=== PATIENT | male | born 1925 | race Caucasian/White ===

== ENCOUNTER 2016-04-08 00:44 | Emergency (ER) | payer OTHER ==
[2016-04-08] MEDS ORDERED: OXYMETAZOLINE 30 ML NASAL SPRAY ONE (01:40)
--- NOTE | 2016-04-08 01:45 | EDPHY ---
H & P Stated Complaint: Left nostril bleeding x 45 min Time Seen by Provider: 04/08/16 01:12 HPI/ROS: HPI The patient presents with epistaxis from left nose which has been present for the last 1 hour, now resolved. The patient recently returned from [place]. He noticed the bleeding tonight while at rest. He tried packing his nose, however passed 2 large clots and came into the emergency room. Now with pressure the bleeding has stopped. He has been evaluated by ENT in the past and had cauterization performed. He is on clopidogrel.. REVIEW OF SYSTEMS Constitutional: No fever, no chills. Eyes: No discharge. ENT: No sore throat. Skin: No rashes. Neurological: No headache. PHYSICAL General Appearance: Alert, no distress Eyes: Pupils equal and round no pallor or injection ENT, Mouth: Nares with no active bleeding, Mucous membranes moist Respiratory: Breathing comfortably Neurological: A&O, moves all extremities Skin: Warm and dry, no rashes Musculoskeletal: Neck is supple non tender Extremities: symmetrical, full range of motion Psychiatric: Patient is oriented X 3, there is no agitation Source: Patient - Personal History Current Tetanus/Diphtheria Vaccine: Yes Current Tetanus Diphtheria and Acellular Pertussis (TDAP): Yes Tetanus Vaccine Date: 2012 - Medical/Surgical History Hx Asthma: No Hx Chronic Respiratory Disease: No Hx Diabetes: No Hx Cardiac Disease: Yes Hx Renal Disease: No Hx Cirrhosis: No Hx Alcoholism: No Hx HIV/AIDS: No Hx Splenectomy or Spleen Trauma: No Other PMH: BYPASS X 5, HIGH CHOLESTEROL, HTN, USE CPAP AT NIGHT, Total right knee, R shoulder muscle surgery - Social History Smoking Status: Former smoker Constitutional: Initial Vital Signs Heart Rate 86 04/08/16 00:53 Respiratory Rate 18 04/08/16 00:53 Blood Pressure 155/110 H 04/08/16 00:53 O2 Sat (%) 93 04/08/16 00:53 O2 Delivery Mode Room Air Allergies/Adverse Reactions: No Known Allergies Allergy (Verified 04/08/16 00:48) Home Medications: Medication Instructions Recorded FOSINOPRIL SODIUM 10/16/13 Finasteride [Proscar 5 MG (*)] 5 mg PO DAILY 10/16/13 Hydrochlorothiazide [HCTZ (*)] 12.5 mg PO DAILY 10/16/13 Metoprolol Succinate Xr [Toprol Xl 100 mg PO DAILY@162910/16/13 100 mg (*)] Rosuvastatin Calcium [Crestor] 10 mg PO DAILY@162910/16/13 Travoprost Z 0.004% [Travatan Z 1 drops EACHEYE HS 10/16/13 0.004% (*)] Vit C/[place] AC/Lut/Copper/Znox 1 each PO DAILY@162910/16/13 [Preservision Lutein Softgel] Clopidogrel 04/08/16 Medical Decision Making Differential Diagnosis: This is an 89-year-old man on the clopidogrel who presents from home with epistaxis, now resolved. On exam, he is hypertensive, no obvious source of bleeding is identified. Differential diagnosis includes bleeding from Kiesselbach's plexus, posterior epistaxis, coagulopathy related to clopidogrel. In the emergency room, the patient was given Afrin and nasal clamps for home use. He was given information for ENT for follow-up tomorrow as needed. He had no recurrence of his bleeding. - Data Points Medications Given: Discontinued Medications Oxymetazoline HCl (Afrin Nasal [place]) 2 sprays EACHNARE EDNOW ONE Stop: 04/08/16 01:49 Last Admin: 04/08/16 01:51 Dose: 2 spray Departure - Departure Disposition: Home, Routine, Self-Care Clinical Impression: Acute anterior epistaxis Condition: Good Instructions: Nosebleed (ED) Additional Instructions: Please call the ENT as listed below for follow-up later today. He should return to the emergency room if your worse in any way. Referrals: Nick Kelly MD [Primary Care Provider] - As per Instructions Charis Gay PA [Physician Sales Representative [employer]] - As per Instructions
[2016-04-08] MEDS ORDERED: OXYMETAZOLINE 30 ML NASAL SPRAY EACHNARE ONE (01:48)
[2016-04-08 01:51] VITALS: BP 144/74; PULSE 64; RESP 16; TEMP 97.9; O2SAT 96
== END 2016-04-08 01:51 | disposition home or self-care (01) ==
DX: R04.0 Epistaxis (principal); I10 Essential (primary) hypertension; Z87.891 Personal history of nicotine dependence

== ENCOUNTER 2017-05-09 00:02 | Emergency (ER) | payer OTHER ==
[2017-05-09 00:06] VITALS: RESP 18; TEMP 97.7
[2017-05-09] MEDS ORDERED: SILVER NITRATE APPLICATOR 1 APPL TP ONE ×2 (00:17→00:18)
[2017-05-09] MEDS ORDERED: LIDOCAINE HCL 4% TOPICAL SOLN 50ML ONE (00:17)
[2017-05-09] MEDS ORDERED: OXYMETAZOLINE 30 ML NASAL SPRAY ONE (00:18)
[2017-05-09] MEDS ORDERED: LIDOCAINE HCL 4% TOPICAL SOLN 50ML MM ONE (00:19)
[2017-05-09] MEDS ORDERED: OXYMETAZOLINE 30 ML NASAL SPRAY EACHNARE ONE (00:20)
--- NOTE | 2017-05-09 00:53 | EDPHY ---
H & P Stated Complaint: nosebleed x45 min Time Seen by Provider: 05/09/17 00:14 HPI/ROS: Chief Complaint: Nosebleed HPI: 89-year-old male woke 45 min ago with bleeding from his left nostril. He has a history of nosebleeds in the past. Had a mild when a couple days ago that went away with direct pressure for few minutes. He is on Plavix but no other blood thinning medications. Has required cautery 2 years ago. No recent illness. No fevers or chills. They do not have a humidifier in the home because they have had mold issues in the past. No headache. No foreign bodies. ROS: 10 point Review of Systems is negative except as noted in the HPI. Family History: non-contributory Physical Exam: Gen: Awake, Alert, No Distress HEENT: Nose: Moderate bleeding from his anterior left nostril Eyes: PERRLA, EOMI Mouth: Moist mucosa Neck: Supple, no JVD Ext: no edema, non-tender Skin: no rash Neuro: CN II-XII intact, Sensation grossly intact, Strength 5/5 in bilateral upper and lower extremities - Personal History Current Tetanus/Diphtheria Vaccine: Yes Tetanus Vaccine Date: 2012 - Medical/Surgical History Hx Asthma: No Hx Chronic Respiratory Disease: No Hx Diabetes: No Hx Cardiac Disease: Yes Hx Renal Disease: No Hx Cirrhosis: No Hx Alcoholism: No Hx HIV/AIDS: No Hx Splenectomy or Spleen Trauma: No Other PMH: BYPASS X 5, HIGH CHOLESTEROL, HTN, USE CPAP AT NIGHT, Total right knee, R shoulder muscle surgery - Social History Smoking Status: Former smoker Constitutional: Initial Vital Signs Temperature (C) 36.5 C 05/09/17 00:03 Heart Rate 118 H 05/09/17 00:03 Respiratory Rate 18 05/09/17 00:03 Blood Pressure 159/105 H 05/09/17 00:03 O2 Sat (%) 96 05/09/17 00:03 O2 Delivery Mode Room Air Allergies/Adverse Reactions: No Known Allergies Allergy (Verified 04/08/16 00:48) Home Medications: Medication Instructions Recorded FOSINOPRIL SODIUM 10/16/13 Finasteride [Proscar 5 MG (*)] 5 mg PO DAILY 10/16/13 Hydrochlorothiazide [HCTZ (*)] 12.5 mg PO DAILY 10/16/13 Metoprolol Succinate Xr [Toprol Xl 100 mg PO DAILY@162910/16/13 100 mg (*)] Rosuvastatin Calcium [Crestor] 10 mg PO DAILY@162910/16/13 Travoprost Z 0.004% [Travatan Z 1 drops EACHEYE HS 10/16/13 0.004% (*)] Vit C/Vit E AC/Lut/Copper/Zinc 1 each PO DAILY@162910/16/13 [Preservision Lutein Softgel] Clopidogrel 04/08/16 Medical Decision Making Procedures: Procedure: Epistaxis control. After verbal consent was obtained, the patient was anesthetized with 4% lidocaine and Addison-Synephrine. The anterior epistaxis was identified. The patient was treated with silver nitrate cautery. Following the procedure the patient was re-examined and the bleeding was well controlled. The patient tolerated the procedure well. The procedure was performed by myself. - Data Points Medications Given: Discontinued Medications Lidocaine HCl (Lidocaine Hcl 4% Topical Solution) 2 ml MM EDNOW ONE Stop: 05/09/17 00:20 Last Admin: 05/09/17 00:21 Dose: 2 ml Oxymetazoline HCl (Afrin Nasal [place]) 2 sprays EACHNARE EDNOW ONE Stop: 05/09/17 00:21 Last Admin: 05/09/17 00:22 Dose: 2 spray Silver Nitrate/Potassium Nitrate (Silver Nitrate Applicator) 3 each TP EDNOW ONE Stop: 05/09/17 00:19 Last Admin: 05/09/17 00:22 Dose: 3 each Departure - Departure Disposition: Home, Routine, Self-Care Clinical Impression: Acute anterior epistaxis Condition: Good Instructions: Nosebleed (ED) Additional Instructions: Follow up with Ear Nose and Throat doctor in 2-3 days for further evaluation. Return to the emergency department for return of bleeding, lightheadedness, fainting, nausea vomiting, or any other concerns. Referrals: Nikc Kelly MD [Primary Care Provider] - As per Instructions Christofer Bertrand MD [Medical Doctor] - As per Instructions
[2017-05-09 02:00] VITALS: BP 128/87; PULSE 89; O2SAT 95
== END 2017-05-09 02:00 | disposition home or self-care (01) ==
PROC: 3E09XTZ Introduction of Destructive Agent into Nose, External Approach (ICD-10-PCS; principal; 2017-05-09)
DX: R04.0 Epistaxis (principal); I10 Essential (primary) hypertension; Z87.891 Personal history of nicotine dependence

== ENCOUNTER 2017-08-16 08:54 | Day surgery (SDC) | payer OTHER ==
[2017-08-16] MEDS ORDERED: BENZOCAINE UNIT DOSE SPRAY HURRICAINE MM ONE (09:05)
[2017-08-16] MEDS ORDERED: fentaNYL 100 MCG/2 ML INJ IVP ONE (09:05)
[2017-08-16] MEDS ORDERED: NS 500 ML IV ONE (09:05)
[2017-08-16] MEDS ORDERED: ATROPINE SULFATE 1 MG/10 ML SYR IVP ONE (09:05)
[2017-08-16] MEDS ORDERED: MIDAZOLAM 2 MG/2 ML VIAL IVP ONE (09:05)
--- NOTE | 2017-08-16 09:16 | CPEKG ---
Heart Rate: 100 RR Interval: 600 QRSD Interval: 122 QT Interval: 384 QTC Interval: 496 QRS [place]ricks: 72 T Wave Hendricks: -32 EKG Severity - ABNORMAL ECG - EKG Impression: ATRIAL FIBRILLATION, V-RATE 94-104 EKG Impression: RIGHT BUNDLE BRANCH BLOCK Electronically Signed By: Kumar East 16-Aug-2017 11:45:07
[2017-08-16 09:38] LABS: INR 1.55 (0.83-1.16); PROTIME(PATIENT) 18.7 SEC (12.0-15.0)
--- NOTE | 2017-08-16 10:18 | PDANEPAE ---
ANE History of Present Illness a flutter ANE Past Medical History - Cardiovascular History Hx Hypertension: Yes Hx Arrhythmias: Yes Hx Chest Pain: No Hx Coronary Artery / Peripheral Vascular Disease: Yes Hx CHF / Valvular Disease: No Hx Palpitations: No - Pulmonary History Hx COPD: No Hx Asthma/Reactive Airway Disease: No Hx Recent Upper Respiratory Infection: No Hx Oxygen in Use at Home: No Hx Sleep Apnea: Yes - Endocrine History Hx Diabetes: No Obesity: yes - Chronic Pain History Chronic Pain: No ANE Review of Systems Review of systems is: negative Review of Systems: - Exercise capacity Exercise capacity: >=4 METS ANE Patient History - Allergies Allergies/Adverse Reactions: No Known Allergies Allergy (Verified 04/08/16 00:48) - Home Medications Home medications: home medication list seen and reviewed Home Medications: FOSINOPRIL SODIUM 10/16/13 [Last Taken Unknown] Finasteride [Proscar 5 MG (*)] 5 mg PO DAILY 10/16/13 [Last Taken 10/15/13] Hydrochlorothiazide [HCTZ (*)] 12.5 mg PO DAILY 10/16/13 [Last Taken 08/15/17 13 :00] Metoprolol Succinate Xr [Toprol Xl 100 mg (*)] 50 mg PO DAILY 10/16/13 [Last Taken 08/16/17 07:00] Rosuvastatin Calcium [Crestor] 10 mg PO DAILY@1630 10/16/13 [Last Taken 10/15/13 ] Travoprost Z 0.004% [Travatan Z 0.004% (*)] 1 drops EACHEYE HS 10/16/13 [Last Taken 10/15/13] Vit C/Vit E AC/Lut/Copper/Zinc [Preservision Lutein Softgel] 1 each PO DAILY@ 1630 10/16/13 [Last Taken 10/15/13] Clopidogrel 75 mg PO DAILY 04/08/16 [Last Taken 08/16/17 07:00] Warfarin Sodium 1 mg PO DAILY 08/16/17 [Last Taken 08/15/17 13:00] - Smoking Hx Smoking Status: Former smoker ANE Labs/Vital Signs - Labs Result Diagrams: 08/16/17 09:20 - Vital Signs Height: 168 cm Weight: 81.6 kg ANE Physical Exam - Airway Neck exam: FROM Mallampati Score: Class 2 Mouth exam: poor dentition - Pulmonary Pulmonary: no respiratory distress - Cardiovascular Cardiovascular: regular rate and rhythym - ASA Status ASA Status: III ANE Anesthesia Plan Anesthesia Plan: GA with mask Urgent/Emergent Case: Anes eval completed preop but documented later for safe timely pt care
[2017-08-16] MEDS ORDERED: PROPOFOL 200 MG/20 ML VIAL ONE (10:20)
--- NOTE | 2017-08-16 10:20 | PDHPUP ---
History & Physical Update H&P update statement: This history and physical update is based on an assessment of the patient which was completed after admission or registration (within 24 hours), but prior to the surgery/procedure. H&P update: H&P reviewed & patient examined, no change in patient's condition since H&P completed
[2017-08-16] MEDS ORDERED: WARFARIN SODIUM 1 MG TAB PO ONE (10:45)
[2017-08-16] MEDS ORDERED: NALOXONE HCL 0.4 MG/ML INJ IVP PRN (10:51)
[2017-08-16] MEDS ORDERED: ALBUTEROL 3 ML DEYVIAL IH PRN (10:51)
[2017-08-16] MEDS ORDERED: ACETAMINOPHEN 500 MG TAB PO PRN (10:51)
[2017-08-16] MEDS ORDERED: ONDANSETRON 4 MG/2 ML VIAL IVP PRN (10:51)
--- NOTE | 2017-08-16 10:51 | POSTANESTH ---
Post Anesthetic Evaluation Cardiovascular Status: Normal, Stable Respiratory Status: Normal, Stable Level of Consciousness/Mental Status: Can Participate in Eval, Moderately Sleepy Pain Control: Adequate, Prn Tx Ordered Nausea/Vomiting Control: Adequate, Prn Tx Ordered Complications Possibly Related to Anesthesia: None Noted
--- NOTE | 2017-08-16 10:54 | PDTEE1 ---
DENISE Cardioversion Procedure Procedure: electrical cardioversion, transesophageal echo Indications: other (atrial flutter) Consent: signed and in chart Anticoagulation: warfarin Procedural Details: Pads were placed in anterior-posterior position. DENISE probe was advanced and standard images obtained. There is no evidence of left atrial or left atrial appendage thrombus. Synchronized cardioversion attempt #1: 200J Results: normal sinus rhythm Conclusions: successful DENISE cardioversion Patient Problems: Problems Problem Status Onset TIA (transient ischemic attack) Acute
--- NOTE | 2017-08-16 16:56 | ECHO ---
[email or web address] [id number] Main: [phone] Fax: Transesophageal Echocardiography Name: JAQUELINE ARRINGTON MR#: [id number] Study Date: 08/16/2017 Study Time: 10:16 AM Date of : 1925 Age: 89 year(s) Height: ( ) Weight: ( ) BSA: Gender: Male Examination: DENISE Indication: Pre Cardioversion Image Quality: Contrast: Requested by: Jose A Morrissey Heart Rate: Rhythm: Atrial fibrillation BP: / Procedure Staff Mud Cleaner Operator: Fred Noel RDCS Reading Physician: Jose A Morrissey MD Requesting Provider: DENISE Exam Details Conclusions: Normal global systolic LV function. An agitated saline study was performed and was negative for intracardiac shunting. Spontaneous contrast in the left atrium. No thrombus in left appendage. Trivial mitral valve regurgitation. Mild aortic cusp calcification is noted. Mild aortic valve regurgitation is present. Proceeded with successful elective DC cardioversion.. Measurements: Chambers Valvular Assessment AV/MV Valvular Assessment TV/PV Normal Normal Normal Name Value Range Name Value Range Name Value Range Additional Measurements: Findings: Left Ventricle: Normal global systolic LV function. Left Atrium: An agitated saline study was performed and was negative for intracardiac shunting. Spontaneous contrast in the left atrium. Left Atrial Appendage: Patient: JAQUELINE ARRINGTON Study Date: 08/16/2017 Page 1 of 2 10:16 AM Good color flow doppler in the left atrial appendage. No thrombus in left appendage. Right Atrium: The right atrium is normal in size. Mitral Valve: Trivial mitral valve regurgitation. Aortic Valve: Mild aortic cusp calcification is noted. Mild aortic valve regurgitation is present. Pulmonic Valve: The pulmonic valve is normal in appearance and function. Aorta: The aorta is normal. Pericardium: No pericardial effusion. Exam Comments: Proceeded with successful elective DC cardioversion.. l1n (No Signature Object) Patient: JAQUELINE ARRINGTON Study Date: 08/16/2017 Page 2 of 2 10:16 AM [id number]
--- NOTE | 2017-08-17 07:36 | CPEKG ---
Heart Rate: 43 RR Interval: 1395 QRSD Interval: 128 QT Interval: 492 QTC Interval: 417 QRS [place]: 44 T Wave [place]: -90 EKG Severity - ABNORMAL ECG - EKG Impression: ATRIAL FIBRILLATION EKG Impression: RIGHT BUNDLE BRANCH BLOCK Electronically Signed By: Kumar East 17-Aug-2017 08:41:12
== END 2017-08-16 12:56 | disposition home or self-care (01) ==
LOC: FIMAGING 08:54 → FCATH 12:56
PROVIDERS: ATTEND Internal Medicine Interventional Cardiology
PROC: B245ZZ4 Ultrasonography of Left Heart, Transesophageal (ICD-10-PCS; principal; 2017-08-16)
PROC: 5A2204Z Restoration of Cardiac Rhythm, Single (ICD-10-PCS; principal; 2017-08-16)
DX: I48.92 Unspecified atrial flutter (principal); I25.10 Atherosclerotic heart disease of native coronary artery without angina pectoris; E78.00 Pure hypercholesterolemia, unspecified; I10 Essential (primary) hypertension; N40.0 Benign prostatic hyperplasia without lower urinary tract symptoms; E66.9 Obesity, unspecified; Z95.1 Presence of aortocoronary bypass graft; Z79.01 Long term (current) use of anticoagulants; Z87.891 Personal history of nicotine dependence; Z68.28 Body mass index [BMI] 28.0-28.9, adult
CPT/HCPCS: J0461; J2704